=== PATIENT | female | born 1995 | race Caucasian/White ===

== ENCOUNTER 2019-03-02 23:39 | Emergency (ER) | payer BC ==
[~2019-03-02] VITALS: Ht 157.5 cm; Wt 50.3 kg
[2019-03-02 23:46] VITALS: Ht 157.5 cm; Wt 50.3 kg
[2019-03-03 02:42] VITALS: BP 104/66
== END 2019-03-03 02:42 | disposition home or self-care (01) ==
LOC: ED 23:39
DX: K64.8 Other hemorrhoids (principal)